=== PATIENT | female | born 1945 | race Caucasian/White ===

== ENCOUNTER 2023-05-30 15:11 | Emergency (ER) | payer MEDICARE ==
[~2023-05-30] VITALS: Ht 167.6 cm; Wt 90.9 kg
[2023-05-30 15:26] VITALS: BP 124/67; PULSE 63; RESP 18; TEMP 98.2; O2SAT 96
[2023-05-30] MEDS ORDERED: ketorolac trometh. 30mg/ml inj. IM ONE (17:05)
[2023-05-30] MEDS ORDERED: HYDROcodone/acetaminophen 10/325mg tab PO ONE (17:05)
[2023-05-30] MEDS ORDERED: LIDO700A32 TOP (17:25)
[2023-05-30] MEDS ORDERED: OXYC-481 PO (17:25)
== END 2023-05-30 17:39 | disposition home or self-care (01) ==
LOC: ER 15:11
DX: M54.9 Dorsalgia, unspecified (principal); G89.29 Other chronic pain; R53.1 Weakness; Z88.8 Allergy status to other drugs, medicaments and biological substances; Z79.899 Other long term (current) drug therapy
CPT/HCPCS: 96372; 99283; J1885